=== PATIENT | female | born 2000 | race Caucasian/White ===

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

== ENCOUNTER → 2020-05-05 10:58 | Outpatient (BNVA) | payer BC, MEDICAID, SELFPAY | PROVIDERS: PCP Family Medicine; Visit Provider Nurse Practitioner Family | DX: J02.9 Acute pharyngitis, unspecified (principal) | CPT/HCPCS: 87071; 87880 ==

== ENCOUNTER 2022-11-12 20:26 | Emergency (ER) | payer SELFPAY ==
[2022-11-12 20:28] VITALS: BP 162/103; PULSE 92; RESP 16; TEMP 36.7; O2SAT 100
--- NOTE | 2022-11-12 20:50 | XRR_ITS ---
PROCEDURE INFORMATION: Exam: XR Left Foot Exam date and time: 11/12/2022 8:54 PM Age: 22 years old Clinical indication: Injury or trauma; Left; Without foreign body; Patient HX: Puncture wound to plantar surface of foot just inferior to 2nd-3rd phalanges; Additional info: Puncture, plantar puncture by nail TECHNIQUE: Imaging protocol: Radiologic exam of the left foot. Views: 3 or more views. COMPARISON: No relevant prior studies available. FINDINGS: Bones/joints: Small calcified heel spur. Minimal distal Achilles tendon degenerative calcification. Soft tissues: Normal. XR/XR foot LT min 3V* [id number] IMPRESSION: 1. Small calcified heel spur. 2. Minimal distal Achilles tendon degenerative calcification. 3. Negative for radiodense foreign body
[2022-11-12] MEDS: tetanus-dipt-pertussis 0.5 mL SDV IM (20:58)
[2022-11-12] MEDS: HYDROcodone-acetaminophen 5-325 mg Tablet 1 TAB PO (21:37)
[2022-11-12] MEDS: cephALEXin 500 mg Capsule PO (21:38)
[2022-11-12] MEDS: ciprofloxacin 500 mg Tablet PO (21:41)
[2022-11-12 22:07] VITALS: BP 154/107
--- NOTE | 2022-11-12 23:33 | W.ED.WOUNDLC ---
HPI - Wound/Laceration General: Chief Complaint: Wound/Laceration Stated Complaint: stepped on nail Time Seen by Provider: 11/12/22 20:37 Source: patient Mode of arrival: ambulatory Limitations: no limitations History of Present Illness: Patient presents to the emergency department today for evaluation treatment of puncture wound to the bottom of her left foot. Patient states she was walking through someone's yard when she accidentally stepped on a board that had 3 nail sticking up in it. Patient has 3 holes in the bottom of her shoe but only 2 puncture pulido to the bottom of her left foot. No active bleeding. These did go through the bottom of her shoe. Unknown last tetanus shot. Review of Systems General: Reports: 10 or more systems reviewed and unremarkable except in HPI and below PFSH ED PFSH: Social History Smoking and tobacco status: never smoked Alcohol intake: never Substance/Drug Use: never Physical Exam Const: COMMON NORMALS: no acute distress, patient oriented x3 and alert HENMT: COMMON NORMALS: normocephalic, atraumatic and hearing grossly normal bilaterally HEAD & SCALP: normocephalic and atraumatic Eye: COMMON NORMALS: Equal, round and reactive pupils present, EOMs intact bilaterally and conjunctivae normal CONJUNCTIVA: Yes conjunctivae normal PUPIL: Yes Equal, round and reactive pupils present Neck/C-Spine: COMMON NORMALS: full ROM and no JVD Lymph: LYMPHATIC: no lymphadenopathy noted Resp: COMMON NORMALS: normal respiratory effort, No retractions and No use of accessory muscles Cardio: COMMON NORMALS: no JVD and regular rate RATE: regular rate Extremity: NARRATIVE EXTREMITY EXAM: Patient with 2 puncture wounds noted to the bottom of the left foot. 1 is just proximal to the second and third MCP joints and another is just towards midline of the left arch. No active bleeding. No significant redness visible at this time. Neuro: COMMON NORMALS: patient oriented x3 SENSORIUM/ORIENTATION: Yes alert Psych: COMMON NORMALS: mental status grossly normal, Normal thought process present, cooperative and normal affect THOUGHT PROCESS: Normal thought process present Skin: COMMON NORMALS: no rashes or lesions noted and turgor normal GENERAL SKIN EXAM: no rashes or lesions noted and turgor normal Course Vital Signs: Vital signs: Vital Signs Temperature 98.1 F 11/12/22 20:28 Pulse Rate 92 11/12/22 20:28 Respiratory Rate 16 11/12/22 20:28 Blood Pressure 154/107 11/12/22 22:07 Pulse Oximetry 100 11/12/22 20:28 MDM - Wound/Laceration Medical Decision Making Patient's tetanus immunization was updated today. Wounds were cleaned and bandaged here in the emergency department with a postop shoe and crutches provided to remain nonweightbearing. Referral to orthopedics/podiatry was initiated on her behalf for her follow-up. First dose of antibiotics provided here in the emergency department and the rest prescribed to her to be picked up at the pharmacy and continued for Bar in the morning. Patient given a short course of pain medication. Patient verbalized understanding and agreement to treatment plan. Differential Diagnosis Unlikely laceration, abscess, abrasion or avulsion of skin Lab Data Radiology Impressions Foot X-Ray 11/12/22 20:50 IMPRESSION: 1. Small calcified heel spur. 2. Minimal distal Achilles tendon degenerative calcification. 3. Negative for radiodense foreign body All radiology interpretation(s) finalized by discharge Discharge Plan Discharge Patient Disposition: Home Clinical Impression: Puncture wound of plantar aspect of left foot Condition: Stable Prescriptions: New ciprofloxacin HCl 500 mg tablet 500 mg PO Q12H Qty: 14 0RF cephalexin 500 mg capsule 500 mg PO Q6H 7 Days Qty: 28 0RF naproxen 500 mg tablet 500 mg PO BID PRN (Reason: pain) Qty: 20 0RF No Action hydrochlorothiazide PO DAILY control PO PER PKG DIR Patient Comments: she is unsure what she is taking citalopram 20 mg tablet 20 mg PO DAILY lisinopril 10 mg tablet 10 mg PO DAILY fluticasone propionate [Flonase Allergy Relief] 50 mcg/actuation spray,suspension 2 spray intranasal DAILY Qty: 16 2RF Rx Instructions: administer into each nostril Discharge Orders: Discharge ED (Routine); Ordered 11/12/22 Ordered By: Amanda Mendoza Referrals: Jose Raines MD [Primary Care Provider] - Discharge Diet: Usual diet Discharge Activity: Limit activity as instructed Patient Instructions: Puncture Wound in the Foot (ED) Activity Restrictions/Additional Instructions: X-ray today shows no retained foreign material in your soft tissue from the puncture wound you sustained today. Unfortunately, puncture wound to the bottom of the feet can be extremely painful and are high risk of infection due to bacteria on not only the skin but also in our shoes. For that reason we have to put you on double coverage antibiotics which we started here in the emergency department tonight. Wash your wounds once a day with warm water and a mild soap we do recommend keeping your foot wrapped. We also recommend remaining nonweightbearing and using crutches until you are followed up by podiatry. I have requested a follow-up appointment with our rugby league footballer for reevaluation to make sure there are no concerns with your healing or developing infection. If you for any reason have concerns you are developing an infection we recommend being seen and reevaluated sooner. Stand Alone Forms: Work/School Release Coding Level of Care Code ED Certified Dental Assistant for [employer]
--- NOTE | 2022-11-13 08:53 | PC.SOCIAL ---
Ortho Referral Referral message sent to ortho clinic at this time. Clinic to contact patient with appt date/time.
== END 2022-11-12 22:09 | disposition home or self-care (01) ==
PROVIDERS: Emergency Provider Physician Assistant; PCP Family Medicine
DX: S91.332A Puncture wound without foreign body, left foot, initial encounter (principal); W45.0XXA Nail entering through skin, initial encounter; Z23 Encounter for immunization
CPT/HCPCS: 73630; 90471; 90715; 99283

== ENCOUNTER 2025-01-10 16:01 | Emergency (ER) | payer BC, MEDICAID, SELFPAY ==
[2025-01-10 16:08] VITALS: BP 151/88; PULSE 69; RESP 18; TEMP 36.8; O2SAT 100; BMI 39.3
--- OUTSIDE RECORDS SUMMARY | 2025-01-10 16:08 | XMS_ITS | Continuity of Care Document ---
Author Organization [facility] Derick, LManjeetLRuy, [facility] ([facility]) Address [address] [place] [address] Care Team Providers Care Fish Dressing Machine Feeder Name Role Phone LENNY RODARTE Primary Care Provider [phone] Assessment No assessment recorded. Plan of Treatment Reminders Order Date Submit Date Provider Last Modified By Organization Details Last Modified Time Details Appointments Tariq 2024 01:00P Tanmay Hein MD Not available Not available Not available Lab None recorded . Referral None recorded . Procedures None recorded . Surgeries None recorded . Imaging None recorded . Medication Orders None recorded . Patient TargetsNo targets recorded. Patient InstructionsNo instructions recorded. Reason for Referral None Reported. Results Created Date Observation Date Name Description Value Unit Range Abnormal Flag Note LastModifiedBy Organization Detail LastModifiedTime 12/31/19 25 12/30/2024 pregn korin test, urine HCG positi ve Not Available [facility] ([facility]) [address] [place], [address], 12/30/2024 15:44:27 Result Notes None recorded. Problems Name Problem SNOMED Code Status Onset Date Resolution Date Notes Provider Name and Address Organization Details Recorded Time Essential hypertension 64996674 Active 2020 Andreea marina, [facility] L.LManjeetCManjeet 4 14:35:56 Depressive disorder 55604248 Active 2023 Lenny Rodarte MD [address] [place], [address], [facility] 4 14:55:16 Irregular periods 82240166 Active 2024 Lenny Rodarte MD [address] [place], [address], [facility], Josefa 5 11:42:35 67813084 Active 2024 [facility], [facility], [place]fa 5 15:49:06 Problem Notes None recorded. Medical Equipment None Reported. Allergies No known drug allergies Medications Name Sig Start Date Stop Date Status Note LastModified by Organization Details LastModified Time cyclobenzap rine 10 mg tablet TAKE ONE TABLET BY MOUTH THREE TIMES DAILY NEEDED FOR 5 DAYS 03/06 completed Not Available Not Available Not Available citalopram 10 mg tablet TAKE ONE TABLET BY MOUTH DAILY active Not Available Not Available No t Available hydrocodone 5 mg-acetamin ophen 325 mg tablet TAKE 1 TABLET BY MOUTH EVERY 8 HOURS NEEDED 03/06 completed Not Available Not Available Not Available ciprofloxac in 500 mg tablet TAKE 1 TABLET BY MOUTH EVERY TWELVE HOURS 03/06 completed Not Available Not Available Not Available amoxicillin 875 mg tablet TAKE 1 TABLET BY MOUTH EVERY TWELVE HOURS for 10 days 12/19 completed Not Available Not Available Not Available cephalexin 500 mg capsule take 1 capsule BY MOUTH EVERY 6 HOURS 03/06 completed Not Available Not Available Not Available oseltamivir 75 mg capsule TAKE 1 CAPSULE BY MOUTH TWICE DAILY FOR 5 DAYS 05/27 completed Not Available Not Available Not Available lisinopril 10 mg tablet TAKE 1 TABLET BY MOUTH EVERY DAY 12/30 completed Not Available Not Available Not Available hydrochloro thiazide 12.5 mg capsule TAKE 1 CAPSULE BY MOUTH EVERY DAY 03/06 completed Not Available Not Available Not Available labetalol 100 mg tablet TAKE 1 TABLET BY MOUTH TWICE DAILY active Not Available Not Available No t Available ondansetron 4 mg disintegrat ing tablet DISSOLVE ONE TABLET in MOUTH EVERY 8 HOURS NEEDED FOR NAUSEA AND VOMITING active Not Available Not Available No t Available nitrofurant oin monohydrate /macrocryst als 100 mg capsule TAKE 1 CAPSULE BY MOUTH TWICE DAILY FOR 5 DAYS 05/27 completed Not Available Not Available Not Available hydrochloro thiazide 12.5 mg tablet TAKE ONE TABLET BY MOUTH DAILY active Not Available Not Available No t Available Tri-VyLibra (28) 0.18 mg(7)/0.215 mg(7)/0.25 mg(7)-0.035 mg tablet TAKE 1 TABLET BY MOUTH EVERY DAY 12/22 completed Not Available Not Available Not Available Vitals None Recorded Social History Question Answer Notes LastModified by Organizat ion Details LastModified Time Tobacco Smoking Status Never Smoker WENDY ORTEGA [facility] 12/30/2024 15:54:44 What Was The Date Of Your Most Recent Tobacco Screening? 12/30/2024 [email or web address] Information not available 12/30/2024 Sex: Unknown Functional Status None recorded. Mental Status None recorded. Family History Relationship Description Onset Age of this Age Resolved Age Notes LastModified by Organization Details LastModified Time Mother Kidney disease 46 52 Not available 2024 10:25:27 Mother Diabetes mellitus [email or web address] Not available 12/20 15:53:51 Mother Transient cerebral ischemia [email or web address] Not available 12/20 15:54:22 Mother Chronic obstructive pulmonary disease [email or web address] Not available 12/20 15:54:31 Father Hypertensive disorder [email or web address] Not available 12/20 15:54:03 Paternal Grandmother Transient cerebral ischemia [email or web address] Not available 12/20 15:54:22 Paternal Grandfather Transient cerebral ischemia Not available 12/20 15:54:22 Medical History Condition Response Coronary Artery Disease N Gout N Other N Kidney Stones N Blood Diseases N Hyperthyroidism N Blood Transfusion N Breast Cancer N COPD N Depression Y Lung Disease N Hypothyroidism N Defects or Inherited Disease N Developmental or Behavioral Disorders N Breast Problem N Difficulty Swallowing N Anesthesia Complications N Meniere's disease N Anxiety Disorder N Muscle, Joint, or Bone Problems N Vision or Eye Problems Y Arthritis N Polyps N Infertility N Cancer N Varicosities N Stroke N Endometriosis N Bladder or Kidney Problems N High Cholesterol N Liver Disease N Fibromyalgia N Headaches N Kidney Disease N Allergies/Hayfever N Heart Problems N Ear or Hearing Problems N Hospitalizations N Thyroid Problems N GI Problems N ADD/ADHD N Eating Disorder N Skin Problems N Anemia N Constipation N Mental Illness N Diabetes N Ovarian Cancer N Bedwetting N Seizures/Epilepsy N Tuberculosis N Eczema N Abuse/Domestic Violence N Diverticulitis N Asthma N Reflux/GERD N Hepatitis N Heart Disease N Pulmonary Embolism N Chronic Ear Infections N Pre-Eclampsia N Hypertension N Chicken Pox N Autism Spectrum Disorder (ASD) N Osteoporosis N Thrombophilias N Gynecological History Statement/Question Response Date of Last Pap Smear Obstetrics History GPAL:G 1 P 0 0 0 0 Type Value Full Term 0 Spontaneous 0 Living 0 Total 1 Immunizations Vaccine Type Date Status Note Provider Nam e and Address Organization Details Recorded Time Tdap 11/12/2022 completed CAMACHO marina [facility], .L.CManjeet 03/06/2023 14:39:38 Past Encounters Encounter ID Performer Location Encounter Start Date Encounter Closed Date Diagnosis/Indication Diagnosis SNOMED-CT Code Diagnosis ICD10 Code Diagnosis IMO Codes Diagnosis Note [id number] Lenny Rodarte MD [facility] ([facility]) [address] [place] [address] 12/22/2024 10:45:22 12/22/2024 12:01:05 Irregular periods 45011234 N92.6 377084 2 positive tests and missed period with tender breasts. I have no doubt that she is . Essential hypertension 95793827 I10 [id number] Arlette Hein MD [facility] ([facility]) [address] [place] [address] 12/30/2024 15:39:18 01/08/2025 15:28:48 Amenorrhea 31591751 N91.2 13060 Chronic hy pertension complicating AND/OR reason for care during 73833597 O10.919 20565136 on lisinopril until 12/22/24.12 , 134/74, Finding of menstrual bleeding 905219673 Z36.87 831682 I reviewed what to avoid in and the plan of care. Mild major depression 87 811230 F32.0 29552 Family his tory of Congenital heart disease 155535442 Z82.79 211077 VSD in FOB. [id number] Arlette Hein MD [facility] ([facility]) [address] [place] [address] 01/06/2025 16:12:04 01/07/2025 10:23:14 [id number] CASSANDRA CHIN [facility] ([facility]) [address] [place] [address] 01/10/2025 16:43:00 01/10/2025 16:49:51 Health Concerns Section Related Observation LastModified by Organization Detai ls LastModified Time None Recorded Concern Status LastModified by Organization Details LastModified Time None Recorded Payers Encounter Date Sequence Insurance Name Policy Number Policy Bustos Covered Member ID Bustos Member ID Guarantor Name 01/10/2025 1 [employer] [place]MEDICA[place]PLACEMENT - HMO) [id number] Joanie Casillas 55 Joanie Casillas OBGyn Episode Ob Episode Information Episode Created Date Number of Fetuses Patient Bloodtype Patient rh Status Prepregnancy Weight lbs Domestic Partner Domestic Partner Phone Father Name Silo Filler Status 12/31/19 25 1 OPEN Fetus Data First Name Last Name Admitted to NICU Weight (g) Sex Living Outcome Pediatric Complications Fetus ID Race Codes Race Delivery Type [id number] West Calculation Initial West Date Initial Exam Date Initial Exam Provider Initial Ultrasound Date Last Menstrual Period Date Ultra Sound Weeks Gestation 12/30/2024 10/22/2024 0 Eighteen To Twenty Week West Update Ultra Sound Date Fundal Height At Umbil Quickening Date Ultra Sound Latest Weeks Gestation Final West Confirmed By Final West Confirmed Date Final West Date Ultra Sound Latest Days Gestation 0 07/30/19 26 0 Pre- Flowsheet Flowsheet Date 12/30/2024 Singer Score Blood Edema Fundus Height Fundus Units Glucose Ketones Leukocytes Nitrite Labor Signs Protein Cervic Dilation Cervic Effacement Cervic Station Type Weight in lbs Pre/Post Dialysis Refused Weight 222.8255342781 BP Diastolic BP Location Tested BP Systolic BP Type 98 150 Fetus Heart Rate Present Fetus Movement Comments Flowsheet Date 01/06/2025 Singer Score Blood Edema Fundus Height Fundus Units Glucose Ketones Leukocytes Nitrite Labor Signs Protein Cervic Dilation Cervic Effacement Cervic Station Type Weight in lbs Pre/Post Dialysis Refused BP Diastolic BP Location Tested BP Systolic BP Type Fetus Heart Rate Present Fetus Movement Comments Flowsheet Date 01/10/2025 Singer Score Blood Edema Fundus Height Fundus Units Glucose Ketones Leukocytes Nitrite Labor Signs Protein Cervic Dilation Cervic Effacement Cervic Station Type Weight in lbs Pre/Post Dialysis Refused BP Diastolic BP Location Tested BP Systolic BP Type Fetus Heart Rate Present Fetus Movement Comments Menstrual History Last Menstrual Date Menses Monthly On Bcp Conception Prior Menses Frequency Hcg Plus Date Menarche Onset Age 0910/22/2024 false Genetic Screening And Infection History Question Response Note Patient's Age Will Be 35 Yea rs Or Older At Estimated Date of Delivery false Thalassemia (Nepalese, Icelandic, Mediterranean, Or Background): MCV < 80 false Neural Tube Defect (Meningom yelocele, Spina Bifida, Or Anencephaly) false Congenital Heart Defect false Down Syndrome false Joseph-Sachs (eg, Sikhism, Cajun, [place]deinig-[employer] [place]) f alse Raf Disease false Sickle Cell Disease Or Trait () false Hemophilia Or Other Blood Disorders false Muscular Dystrophy false Cystic Fibrosis false [place] false Intellectual Disability/Autism false If Yes, Was Person Tested For Fragile X? false Other Inherited Genetic Or Chromosomal Disorder false Maternal Metabolic Disorder (eg, Type 1 Diabetes , PKU) false Patient Or Baby's Father Had A Child With Defects Not Listed Above false Recurrent Loss, Or A Stillbirth false Medications (including Suppl ements, Vitamins, Herbs, OTC Drugs), Illicit/Recreational Drugs, Alcohol true If Yes, Agent(s) And Strength/Dosage false See chart. Any Other Genetic History false Live With Someone With TB Or Exposed To TB false Patient Or Partner Has History Of Genital Herpes false Rash Or Viral Illness Since Last Menstrual Perio d false History Of STD, Gonorrhea, Chlamydia, HPV, Syphi lis false Other Infection History false History of HIV false History of Hepatitis false Prior GBS-infected child false Hemoglobinopathy Or Carrier false Other Structural Defect false Recent Travel History Outside of Country false Mental Retardation/Autism false Delivery Information Delivery Date Delivery Type Labor Anesthesia Weeks Gestation Incision Type Labor Labor Length Hrs Delivered By Post Complications Tubal Sterilization Discharge Date Comments Discharge Information Feeding Method Contraceptive Method Maternal HG B and HCT Levels
--- OUTSIDE RECORDS SUMMARY | 2025-01-10 16:08 | XMS_ITS | Data Portability ---
Author Organization [facility], [facility], [facility] Address [address] [address] Care Team Providers Care Dross Skimmer Name Role Phone LENNY RODARTE Primary Care Provider Assessment No assessment recorded. Plan of Treatment Reminders Order Date Submit Date Provider Last Modified By Organization Details Last Modified Time Details Appointments [facility]00P M Arlette Hein MD Not available Not available Not available Lab test, urine 2024 025 [email or web address] [facility] ([facility]), [address] [place], [address], 01/01/2025 13:14:34 Referral obstetric violeta referral 2024 025 [email or web address] Arlette Hein MD, [address], [address], 12/23/2024 10:22:38 Procedures None recorded. Surgeries None recorded. Imaging US, obstetric , 1st trimester - 25114 2024 025 [email or web address] [facility], [address] [place], [address], 01/08/2025 15:28:48 Medication Orders labetalol 100 mg tablet 2024 025 [facility] [place], [address] [place], [address], 12/23/2024 09:27:30 Tri-VyLib ra (28) 0.18 mg(7)/0.2 15 mg(7)/0.2 5 mg(7)-0.0 35 mg tablet 2024 11/03/2 025 [facility] [place], [address] [place], [address], 12/22/2024 11:18:08 Patient TargetsNo targets recorded. Patient Instructions Encounter Date Encounter Id Patient Instructions Last Modified By Organization Details Last Modified Time 05/27/2024 [id number] discussed plans to get a GED. [email or web address] Not available 05/27/2024 10:58:42 Reason for Referral Health Insurance Sales Agent Referral for Ir regular periods Referring Physician: Lenny Rodarte, Family Medicine, Encounter Date: 12/22/2024 Results Created Date Observation Date Name Description Value Unit Range Abnormal Flag Note LastModifiedBy Organization Detail LastModifiedTime 12/31/19 25 12/30/2024 pregn korin test, urine HCG positi ve Not Available [facility] [address] [place], [address], 12/30/2024 15:44:27 Result Notes None recorded. Problems Name Problem SNOMED Code Status Onset Date Resolution Date Notes Provider Name and Address Organization Details Recorded Time Essential hypertension 39758166 Active 2020 Andreea Cabrera null, [facility], LManjeetLRuy 4 14:35:56 Depressive disorder 12033930 Active 2023 Lenny Rodarte MD [address] [place] [address], [address], [facility] 4 14:55:16 Irregular periods 71453173 Active 2024 Lenny Rodarte MD [address] [place] [address], [address], [facility] 5 11:42:35 21867158 Active 2024 WENDY ORTEGA [facility], [facility], [facility] 5 15:49:06 Problem Notes None recorded. Medical [...] Not Available Not Available Not Available Vitals Date Recorded Body weight Oxygen saturation Heart rate Systolic And Diastolic Provider Name and Address Organization Details Last Updated DateTime 05/27/2024 40972.77 g 97 % 74 /min 130/80 mm[Hg] CAMACHO JAMES [facility] 05/27/2024 10:31:39 Date Recorded Body height Body mass index (BMI) Body weight Oxygen saturation Heart rate Body temperature Systolic And Diastolic Provider Name and Address Organization Details Last Updated DateTime 160.02 cm 39 kg/m2 44074.3 2 g 99 % 102 /min 98 [degF] 130/86 mm[Hg] CARLO GOLDSTEIN [facility] 11:13:09 Date Recorded Body height Body mass index (BMI) Body weight Body temperature Oxygen saturation Heart rate Systolic And Diastolic Provider Name and Address Organization Details Last Updated DateTime 160.02 cm 39.3 kg/m2 496653. 51 g 98.2 [degF] 99 % 87 /min 150/98 mm[Hg] WENDY ORTEGA [facility] 15:48:08 Social History Question Answer Notes LastModified by Organizat ion Details LastModified Time Tobacco Smoking Status Never Smoker WENDY ORTEGA [facility] 12/30/2024 15:54:44 What Was The Date Of Your Most Recent Tobacco Screening? 12/30/2024 [email or web address] Information not available 12/30/2024 Sex: Unknown Functional Status None recorded. Mental Status None recorded. Family History Relationship Description Onset Age of this Age Resolved Age Notes LastModified by Organization Details LastModified Time Mother Kidney disease 46 52 Not available 2024 10:25:27 Mother Diabetes mellitus [email or web address] Not available 12/20 15:53:51 Mother Transient cerebral ischemia [email or web address] Not available 12/20 15:54:22 Mother Chronic obstructive pulmonary disease [email or web address] Not available 12/20 15:54:31 Father Hypertensive disorder [email or web address] Not available 12/20 15:54:03 Paternal Grandmother Transient cerebral ischemia Not available 12/20 15:54:22 Paternal Grandfather Transient cerebral ischemia [email or web address] Not available 12/20 15:54:22 Medical History Condition Response Coronary Artery Disease N Other N Gout N Kidney Stones N Blood Diseases N Hyperthyroidism N Breast Cancer N Blood Transfusion N Depression Y Hypothyroidism N Lung Disease N COPD N Defects or Inherited Disease N Developmental [...] Problems N GI Problems N ADD/ADHD N Skin Problems N Eating Disorder N Anemia N Constipation N Mental Illness N Ovarian Cancer N Diabetes N Bedwetting N Seizures/Epilepsy N Tuberculosis N Eczema N Diverticulitis N Abuse/Domestic Violence N Asthma N Reflux/GERD N Hepatitis N Heart Disease N Pulmonary Embolism N Pre-Eclampsia N Hypertension N Chronic Ear Infections N Osteoporosis N Chicken Pox N Autism Spectrum Disorder (ASD) N Thrombophilias N Gynecological History Statement/Question Response Date of Last Pap Smear Obstetrics History GPAL:G 1 P 0 0 0 0 Type Value Full Term 0 Spontaneous 0 Living 0 Total 1 Immunizations Vaccine Type Date Status Note Provider Nam e and Address Organization Details Recorded Time Tdap 11/12/[address] [facility] 03/06/2023 14:39:38 Past Encounters Encounter ID Performer Location Encounter Start Date Encounter Closed Date Diagnosis/Indication Diagnosis SNOMED-CT Code Diagnosis ICD10 Code Diagnosis IMO Codes Diagnosis Note [id number] CASSANDRA RADFORD [facility] ([facility]) [address] [place] [address] 06/01/2022 15:45:49 06/07/2022 17:13:41 Low back pain 236269864 M54.50 Tylenol and Ibuprofen as needed for pain OTC. [id number] Lenny Rodarte MD [facility] ([facility]) [address] [place] [address] 03/06/2023 14:25:40 03/06/2023 16:54:28 Essential hypertension 77844790 I10 Generalize d anxiety disorder 93385118 F41.1 [id number] Lenny Rodarte MD [facility] ([facility]) [address] [place] [address] 05/27/2024 10:17:24 05/27/2024 11:02:45 Essential hypertension 09879048 I10 Depressive disorder 3548 9007 F32.9 stable at present. Contracept ion care management 904904351 Z30.9 Contraception care 44304 5005 Z30.40 [id number] Lenny Rodarte MD [facility] ([facility]) [address] [place] [address] 12/22/2024 10:45:22 12/22/2024 12:01:05 Irregular periods 68684934 N92.6 699035 2 positive tests and missed period with tender breasts. I have no doubt that she is . Essential hypertension 79017881 I10 [id number] Arlette Hein MD [facility] ([facility]) [address] [place] [address] 12/30/2024 15:39:18 01/08/2025 15:28:48 Amenorrhea 68589779 N91.2 97109 Chronic hy pertension complicating AND/OR reason for care during 63636546 O10.919 66042383 on lisinopril until 12/22/24.12 , 134/74, Finding of menstrual bleeding 968697321 Z36.87 121653 I reviewed what to avoid in and the plan of care. Mild major depression 87 824452 F32.0 97646 Family his tory of Congenital heart disease 415517097 Z82.79 503200 VSD in FOB. [id number] Arlette Hein MD [facility] ([facility]) [address] [place] [address] 01/06/2025 16:12:04 01/07/2025 10:23:14 [id number] CASSANDRA CHIN [facility] ([facility]) [address] [place] [address] 01/10/2025 16:43:00 01/10/2025 16:49:51 Health Concerns Section Related Observation LastModified by Organization Detai ls LastModified Time None Recorded Concern Status LastModified by Organization Details LastModified Time None Recorded Advance Directives Directive None Recorded Payers Insurance Date Sequence Insurance Name Policy Number Policy Bustos Covered Member ID Bustos Member ID Guarantor Name 12/22/2024 1 *SELF PAY* Victoriano anupama Casillas 01/06/2025 1 [facility] (MEDICAID HMO) [id number] Joanie Casillas [id number] Joanie Casillas 05/27/2024 1 [facility] (MEDICAID REPLACEMENT - HMO) [id number] Montagueles [id number] Joanie Casillas 06/22/2022 MARKY [id number] Marky Joanie Casillas 01/06/2025 1 [facility] (MEDICAID REPLACEMENT - HMO) [id number] Joanie Casillas [id number] Joanie Casillas 01/06/2025 [facility] (MEDICAID HMO) [id number] Joanie Casillas [id number] Joanie Casillas Notes Date Note Type Note Provider Name and Address Organization Details Recorded Time text/html Anxiety/DepressionReporte d by PatientHPIFor associated symptoms, patient reportsdepressionbut reportsno anxiety. For severity, patient reportsdenies suicidal ideations,able to maintain relationships, anddoes not interfere with activities of daily living. For modifying factors, patient reportsmedications as directed. Hypertension IM/FMReported by PatientHPIFor quality, patient reportshere for check-up. For severity, patient reportsnormal (<120/<80 mmhg). For onset/timing, patient reportsgradual onset. For alleviating factors, patient reportsmedication. For associated symptoms, patient reportsno shortness of breath,no palpitations, andno chest pain. Lenny Rodarte MD [address] [place], [address], [facility], LManjeetLRuy 05/27/2024 11:00:52 11/03/202 5 text/html Confirmation VisitReported by PatientHPIFor obstetrics and gynecology, patient reportsno bleeding between periods,lmp: (10/22/24), anddate positive test: (12/11/24). Lenny Rodarte MD [address] [place], [address], [facility] 12/22/2024 11:50:05 5 text/html ROS as noted in the HPI Arlette Hein MD [address] [place], [address], [facility] 01/08/2025 14:44:25 OBGyn Episode Ob Episode Information Episode Created Date Number of Fetuses Patient Bloodtype Patient rh Status Prepregnancy Weight lbs Domestic Partner Domestic Partner Phone Father Name Pickling Operator Status 12/31/19 25 1 OPEN Fetus Data First Name Last Name Admitted to NICU Weight (g) Sex Living Outcome Pediatric Complications Fetus ID Race Codes Race Delivery Type [id number] West Calculation Initial West Date Initial Exam [...] Latest Days Gestation 0 07/30/19 26 0 Pre-omaira Flowsheet Flowsheet Date 12/30/2024 Singer Score Blood Edema Fundus Height Fundus Units Glucose Ketones Leukocytes Nitrite Labor Signs Protein Cervic Dilation Cervic Effacement Cervic Station Type Weight in lbs Pre/Post Dialysis Refused Weight 222.8237204011 BP Diastolic BP Location Tested BP Systolic [...] At Estimated Date of Delivery false Thalassemia (Macedonian, Indonesian, Mediterranean, Or Background): MCV < 80 false Neural Tube Defect (Meningom yelocele, Spina Bifida, Or Anencephaly) false Congenital Heart Defect false Down Syndrome false Joseph-Sachs (eg, Mosque, Cajun, Upper Sorbian[place]) f alse Raf Disease false Sickle Cell Disease Or Trait () false Hemophilia Or Other Blood Disorders false Muscular Dystrophy false Cystic Fibrosis false Elizabeth's Chorea false Intellectual Disability/Autism false If Yes, [...]
--- OUTSIDE RECORDS SUMMARY | 2025-01-10 16:08 | XMS_ITS | Continuity of Care Document ---
Author Organization [facility] Derick, Josefa, [facility] ([facility]) Address [address] [place] [address] Care Team Providers Care Foreign Language Professor Name Role Phone LENNY RODARTE Primary Care Provider Assessment No assessment recorded. Plan of Treatment Reminders Order Date Submit Date Provider Last Modified By Organization Details Last Modified Time Details Appointments BarrFELIZ 2024 01:00P Tanmay Hein MD Not available Not available Not available Lab test, urine 2024 025 [email or web address] [facility] ([facility]), [address] [place], [address], 01/01/2025 13:14:34 Referral None recorded. Procedures None recorded. Surgeries None recorded. Imaging US, obstetric , 1st trimester - [address] 2024 025 [email or web address] [facility], [address] [place] [address], [address], 01/08/2025 15:28:48 Medication Orders None recorded. Patient TargetsNo targets recorded. Patient InstructionsNo instructions recorded. Reason for Referral None Reported. Results Created Date Observation Date Name Description Value Unit Range Abnormal Flag Note LastModifiedBy Organization Detail LastModifiedTime 12/31/19 25 12/30/2024 pregn korin test, urine HCG positi ve Not Available [facility] ([facility]) [address] [place], [address], 12/30/2024 15:44:27 Result Notes None recorded. Problems Name Problem SNOMED Code Status Onset Date Resolution Date Notes Provider Name and Address Organization Details Recorded Time Essential hypertension 57598623 Active 2020 Andreea Deborah null, [facility] 4 14:35:56 Depressive disorder 81780920 Active 2023 Lenny Rodarte MD [address] [place], [address], [facility] 4 14:55:16 Irregular periods 58374780 Active 2024 Lenny Rodarte MD [address] [place], [address], [facility] 5 11:42:35 54171148 Active 2024 WENDY marina [facility] 5 15:49:06 Problem Notes None recorded. Medical [...] Available Not Available Vitals Date Recorded Body height Body mass index (BMI) Body weight Body temperature Oxygen saturation Heart rate Systolic And Diastolic Provider Name and Address Organization Details Last Updated DateTime 160.02 cm 39.3 kg/m2 218143. 51 g 98.2 [degF] 99 % 87 /min 150/98 mm[Hg] WENDY ORTEGA [facility] 15:48:08 Social History Question Answer Notes LastModified by Organizat ion Details LastModified Time Tobacco Smoking Status Never Smoker WENDY ORTEGA [facility] 12/30/2024 15:54:44 What Was The Date Of Your Most Recent Tobacco Screening? 12/30/2024 [email or web address] Information not available 12/30/2024 Sex: Unknown Functional Status None recorded. Mental Status None recorded. Family History Relationship Description Onset Age of this Age Resolved Age Notes LastModified by Organization Details LastModified Time Mother Kidney disease 46 52 [email or web address] Not available 2024 10:25:27 Mother Diabetes mellitus [email or web address] Not available 12/20 15:53:51 Mother Transient cerebral ischemia [email or web address] Not available 12/20 15:54:22 Mother Chronic obstructive pulmonary disease Not available 12/20 15:54:31 Father Hypertensive disorder [email or web address] Not available 12/20 15:54:03 Paternal Grandmother Transient cerebral ischemia [email or web address] Not available 12/20 15:54:22 Paternal Grandfather Transient cerebral ischemia [email or web address] Not available 12/20 15:54:22 Medical History Condition Response Coronary Artery Disease N Gout N Other N Blood Diseases N Kidney Stones N Hyperthyroidism N Breast Cancer N Blood Transfusion N Hypothyroidism N Lung Disease N COPD N Depression Y Developmental or Behavioral Disorders N Defects or Inherited Disease N Breast Problem N Difficulty Swallowing N [...] Organization Details Recorded Time Tdap 11/12/2022 completed NUSRAT Hoff [facility]jeet 03/06/2023 14:39:38 Past Encounters Encounter ID Performer Location Encounter Start Date Encounter Closed Date Diagnosis/Indication Diagnosis SNOMED-CT Code Diagnosis ICD10 Code Diagnosis IMO Codes Diagnosis Note [id number] Lenny Rodarte MD [facility] ([facility]) [address] [place] [address] 12/22/2024 10:45:22 12/22/2024 12:01:05 Irregular periods 34368394 N92.6 270501 2 positive tests and missed period with tender breasts. I have no doubt that she is . Essential hypertension 60199335 I10 [id number] Arlette Hein MD [facility] [address] [place] [address] 12/30/2024 15:39:18 01/08/2025 15:28:48 Amenorrhea 28951241 N91.2 50460 Chronic hy pertension complicating AND/OR reason for care during 66793262 O10.919 25540703 on lisinopril until 12/22/24.12 , 134/74, Finding of menstrual bleeding 695184122 Z36.87 454107 I reviewed what to avoid in and the plan of care. 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 Health Concerns Section Related Observation LastModified by Organization Detai ls LastModified Time None Recorded Concern Status LastModified by Organization Details LastModified Time None Recorded Payers Encounter Date Sequence Insurance Name Policy Number Policy Bustos Covered Member ID Bustos Member ID Guarantor Name 12/30/2024 1 [facility] (MEDICAID HMO) [id number] Joanie Casillas [id number] Joanie Casillas Notes Date Note Type Note Provider Name and Address Organization Details Recorded Time 12/30/2024 text/html ROS as noted in the HPI Arlette Hein MD [address] [place] [address], [address], [facility] 01/08/2025 14:44:25 OBGyn Episode Ob Episode Information Episode Created Date Number of Fetuses Patient Bloodtype Patient rh Status Prepregnancy Weight lbs Domestic Partner Domestic Partner Phone Father Name Classics Professor Status 12/31/19 1 OPEN Fetus Data First Name Last Name Admitted to NICU Weight (g) Sex Living Outcome Pediatric Complications Fetus ID Race Codes Race Delivery Type [id number] West Calculation Initial West Date Initial Exam [...] Weight in lbs Pre/Post Dialysis Refused Weight 222.6634715474 BP Diastolic BP Location Tested BP Systolic [...] At Estimated Date of Delivery false Thalassemia (Indonesian, Uzbek, Mediterranean, Or Background): MCV < 80 false Neural Tube Defect (Meningom yelocele, Spina Bifida, Or Anencephaly) false Congenital Heart Defect false Down Syndrome false Joseph-Sachs (eg, Religion, Cajun, Maori-[place]) f alse Raf Disease false Sickle Cell Disease Or Trait () false Hemophilia Or Other Blood Disorders false Muscular Dystrophy false Cystic Fibrosis false [place]'s Chorea false Intellectual Disability/Autism false If Yes, [...]
--- OUTSIDE RECORDS SUMMARY | 2025-01-10 16:08 | XMS_ITS | Continuity of Care Document ---
Author Organization [facility] Derick, LMnajeetLRuy, [facility] ([facility]) Address [address] [place] [address] Care Team Providers Care [employer] Principal Name Role Phone LENNY RODARTE Primary Care Provider [phone] Assessment No assessment recorded. Plan of Treatment [...] test, urine HCG positi ve Not Available [facility] ([facility]) [address] [place], [address], 12/30/2024 15:44:27 Result Notes None recorded. Problems Name Problem SNOMED Code Status Onset Date Resolution Date Notes Provider Name and Address Organization Details Recorded Time Essential hypertension 14829279 Active 2020 Andreea marina, [facility] L.LManjeetCManjeet 4 14:35:56 Depressive disorder 92846564 Active 2023 Lenny Rodarte MD [address] [place], [address], [facility]et[facility]. 4 14:55:16 Irregular periods 52699659 Active 2024 Lenny Rodarte MD [address] [place], [address], [facility], Josefa 5 11:42:35 59696720 Active 2024 WENDY ORTEGA [facility], [facility], Josefa 5 15:49:06 Problem Notes None recorded. [...] Tobacco Smoking Status Never Smoker WENDY ORTEGA [facility] 12/30/2024 15:54:44 What Was The Date Of Your Most Recent Tobacco Screening? 12/30/2024 [email or web address] Information not available 12/30/2024 Sex: Unknown Functional Status None recorded. Mental Status None recorded. Family History Relationship Description Onset Age of this Age Resolved Age Notes LastModified by Organization Details LastModified Time Mother Kidney disease 46 52 [email or web address] Not available 2024 10:25:27 Mother Diabetes mellitus Not available 12/20 15:53:51 Mother Transient cerebral ischemia Not available 12/20 15:54:22 Mother Chronic obstructive pulmonary disease [email or web address] Not available 12/20 15:54:31 Father Hypertensive disorder [email or web address] Not available 12/20 15:54:03 Paternal Grandmother Transient cerebral ischemia [email or web address] Not available 12/20 15:54:22 Paternal Grandfather Transient cerebral ischemia [email or web address] Not available 12/20 15:54:22 Medical History Condition Response Coronary Artery Disease N Other N Gout N Kidney Stones N Blood Diseases N Hyperthyroidism N Breast Cancer N Blood Transfusion N Depression Y Hypothyroidism N Lung Disease N COPD N Developmental or Behavioral Disorders N Defects or Inherited Disease N Breast Problem N Difficulty Swallowing N Anesthesia Complications N Anxiety Disorder N Meniere's disease N Muscle, Joint, or Bone Problems N Vision or Eye Problems Y Arthritis N Infertility N Polyps N Cancer N Stroke N Varicosities N Endometriosis N Bladder or Kidney Problems [...] Recorded Time Tdap 11/12/2022 completed CAMACHO marina [facility], .L.CManjeet 03/06/2023 14:39:38 Past Encounters Encounter ID Performer Location Encounter Start Date Encounter Closed Date Diagnosis/Indication Diagnosis SNOMED-CT Code Diagnosis ICD10 Code Diagnosis IMO Codes Diagnosis Note [id number] Lenny Rodarte MD [facility] ([facility]) [address] [place] [address] 12/22/2024 10:45:22 12/22/2024 12:01:05 Irregular periods 51671009 N92.6 423275 2 positive tests and missed period with tender breasts. I have no doubt that she is . Essential hypertension 64181702 I10 [id number] Arlette Hein MD [facility] ([facility]) [address] [place] [address] 12/30/2024 15:39:18 01/08/2025 15:28:48 Amenorrhea 23920718 N91.2 78044 Chronic hy pertension complicating AND/OR reason for care during 18184888 O10.919 96892396 on lisinopril until 12/22/24.12 , 134/74, Finding of menstrual bleeding 028791318 Z36.87 057194 I reviewed what to avoid in and the plan of care. Mild major depression 87 957716 F32.0 26633 Family his tory of Congenital heart disease 643312690 Z82.79 396336 VSD in FOB. [id number] Arlette Hein MD [facility] ([facility]) [address] [place] [address] 01/06/2025 16:12:04 01/07/2025 10:23:14 Health Concerns Section Related Observation LastModified by Organization Detai ls LastModified Time None Recorded Concern Status LastModified by Organization Details LastModified Time None Recorded Payers Encounter Date Sequence Insurance Name Policy Number Policy Bustos Covered Member ID Bustos Member ID Guarantor Name 01/06/2025 1 [employer] (MEDICAID REPLACEMENT - HMO) [id number] Joanie Melony Casillas 55 Joanie Casillas OBGyn Episode Ob Episode Information Episode Created Date Number of Fetuses Patient Bloodtype Patient rh Status Prepregnancy Weight lbs Domestic Partner Domestic Partner Phone Father Name Seam Sewer Status 12/31/19 25 1 OPEN Fetus Data First Name Last Name Admitted to NICU Weight (g) Sex Living Outcome Pediatric Complications Fetus ID Race Codes Race Delivery Type [id number] West Calculation Initial West Date Initial Exam [...] Weight in lbs Pre/Post Dialysis Refused Weight [id number] BP Diastolic BP Location Tested BP Systolic [...] At Estimated Date of Delivery false Thalassemia (Paraguayan, Andorran, Mediterranean, Or Background): MCV < 80 false Neural Tube Defect (Meningom yelocele, Spina Bifida, Or Anencephaly) false Congenital Heart Defect false Down Syndrome false Joseph-Sachs (eg, Uatsdin, Cajun, Angolan-[facility] [facility]) f alse Raf Disease false Sickle Cell Disease Or Trait () false Hemophilia Or Other Blood Disorders false Muscular Dystrophy false Cystic Fibrosis false [place]'s Chorea false Intellectual Disability/Autism false If Yes, [...]
--- OUTSIDE RECORDS SUMMARY | 2025-01-10 16:08 | XMS_ITS | Continuity of Care Document ---
Author Organization [facility] Derick, L.L.CManjeet, [facility] ([facility]) Address [address] [place] [address] Care Team Providers Care Bell Spinner Name Role Phone LENNY RODARTE Primary Care Provider [phone] Assessment No assessment recorded. Plan of Treatment Reminders Order Date Submit Date Provider Last Modified By Organization Details Last Modified Time Details Appointments BarrFELIZ 2024 01:00P Tanmay Hein MD Not available Not available Not available Lab None recorded. Referral obstetric violeta referral 2024 025 Arlette Hein MD, [address], [address], 12/23/2024 10:22:38 Procedures None recorded. Surgeries None recorded. Imaging None recorded. Medication Orders labetalol 100 mg tablet 2024 025 [facility] [place], [address] [place], [address], 12/23/2024 09:27:30 Patient TargetsNo targets recorded. Patient InstructionsNo instructions recorded. Reason for Referral Shopper'S Aide Referral for Ir regular periods Referring Physician: Lenny Rodarte Family [facility], Encounter Date: 12/22/2024 Problems Name Problem SNOMED Code Status Onset Date Resolution Date Notes Provider Name and Address Organization Details Recorded Time Essential hypertension 28264243 Active [address] [facility], L.L.CManjeet 4 14:35:56 Depressive disorder 40602199 Active 2023 Lenny Rodarte MD [address] [place], [address], [facility], L.LRuy 4 14:55:16 Irregular periods 85143980 Active 2024 Lenny Rodarte MD [address] [place], [address], [facility], L.LRuy 5 11:42:35 81706707 Active 2024 WENDY ORTEGA [facility], [facility], L.LRyu 5 15:49:06 Problem Notes None recorded. Medical [...] Last Updated DateTime 160.02 cm 39 kg/m2 03287.3 2 g 99 % 102 /min 98 [degF] 130/86 mm[Hg] CARLO GOLDSTEIN [facility], L.L.C. 11:13:09 Social History Question Answer Notes LastModified by Organizat ion Details LastModified Time Tobacco Smoking Status Never Smoker [facility] 12/30/2024 15:54:44 What Was The Date Of Your Most Recent Tobacco Screening? 12/30/2024 [email or web address] Information not available 12/30/2024 Sex: Unknown Functional Status None recorded. Mental Status None recorded. Family History Relationship Description Onset Age of this Age Resolved Age Notes LastModified by Organization Details LastModified Time Mother Kidney disease 46 52 [email or web address] Not available 2024 10:25:27 Mother Diabetes mellitus Not available 12/20 15:53:51 Mother Transient cerebral ischemia Not available 12/20 15:54:22 Mother Chronic obstructive pulmonary disease Not available 12/20 15:54:31 Father Hypertensive disorder [email or web address] Not available 12/20 15:54:03 Paternal Grandmother Transient cerebral ischemia [email or web address] Not available 12/20 15:54:22 Paternal Grandfather Transient cerebral ischemia Not available 12/20 15:54:22 Medical History Condition Response Coronary Artery Disease N Other N Gout N Kidney Stones N Blood Diseases N Hyperthyroidism N Breast Cancer N Blood Transfusion N Hypothyroidism N Depression Y COPD N Lung Disease N Defects or Inherited Disease N Developmental or Behavioral Disorders N Breast Problem N Difficulty Swallowing N Anesthesia Complications N Anxiety Disorder N Meniere's disease N Muscle, Joint, or Bone Problems N Vision or Eye Problems Y Arthritis N Polyps N Infertility N Cancer N Varicosities N Stroke N Endometriosis N Bladder or Kidney Problems N High Cholesterol N Liver Disease N Headaches N Fibromyalgia N Kidney Disease N Allergies/Hayfever N Heart [...] Address Organization Details Recorded Time Tdap 11/12/2022 nolan JAMES [facility] 03/06/2023 14:39:38 Past Encounters Encounter ID Performer Location Encounter Start Date Encounter Closed Date Diagnosis/Indication Diagnosis SNOMED-CT Code Diagnosis ICD10 Code Diagnosis IMO Codes Diagnosis Note [id number] Lenny Rodarte MD [facility] ([facility]) [address] [place] [address] 12/22/2024 10:45:22 12/22/2024 12:01:05 Irregular periods 72334425 N92.6 625000 2 positive tests and missed period with tender breasts. I have no doubt that she is . Essential hypertension 26104261 I10 Health Concerns Section Related Observation LastModified by Organization Detai ls LastModified Time None Recorded Concern Status LastModified by Organization Details LastModified Time None Recorded Payers Encounter Date Sequence Insurance Name Policy Number Policy Bustos Covered Member ID Bustos Member ID Guarantor Name 12/22/2024 1 [facility] (MEDICAID HMO) [id number] Joanie Ty Vinny [id number] Joanie Ty Vinny OBGyn Episode Ob Episode Information Episode Created Date Number of Fetuses Patient Bloodtype Patient rh Status Prepregnancy Weight lbs Domestic Partner Domestic Partner Phone Father Name Tennis Court Attendant Status 12/31/19 25 1 OPEN Fetus Data First Name Last Name Admitted to NICU Weight (g) Sex Living Outcome Pediatric Complications Fetus ID Race Codes Race Delivery Type [id number] West Calculation Initial West Date Initial Exam [...] Weight in lbs Pre/Post Dialysis Refused Weight 222.8729256049 BP Diastolic BP Location Tested BP Systolic [...] At Estimated Date of Delivery false Thalassemia (Spanish, Jamaican, Mediterranean, Or Background): MCV < 80 false Neural Tube Defect (Meningom yelocele, Spina Bifida, Or Anencephaly) false Congenital Heart Defect false Down Syndrome false Joseph-Sachs (eg, Hinduism, Cajun, Kinyarwanda-Snyder) f alse Raf Disease false Sickle Cell Disease Or Trait () false Hemophilia Or Other Blood Disorders false Muscular Dystrophy false Cystic Fibrosis false [place]nairy's Chorea false Intellectual Disability/Autism false If Yes, [...]
--- NOTE | 2025-01-10 16:21 | ED_ITS ---
HPI - General Adult 2 General: Chief complaint: General Medical Stated complaint: 8Weeks Preg tired dry mouth N Time Seen by Provider: 01/10/25 16:21 History of Present Illness: 24-year-old female with a history of dep ression and hypertension who presents emergency room with dry mouth and generalized weakness. She says she is about 9 weeks . Says she was at work at [employer] today and felt like she was going to pass out. Says sitting helps. No fevers. No vaginal bleeding. No pelvic pain. No adnexal pain. She has had some general nausea and morning sickness. Related Data Home Medications ?Medication ?Instructions ?Recorded ?Confirmed citalopram 10 mg tablet 10 mg PO DAILY 12/15/2412/21 hydrochlorothiazide 12.5 mg tablet 12.5 mg PO DAILY 01/10/25 labetalol 100 mg tablet 100 mg PO BID 01/10/2501/10 Previous Rx's ?Medication ?Instructions ?Recorded ondansetron 4 mg disintegrating 4 mg PO Q8H PRN nausea and 12/15/24 tablet vomiting #14 tabs ondansetron 8 mg disintegrating 8 mg PO Q6H #14 tabs 1 03/12/24 tablet Allergies Allergy/AdvReac Type Severity Reaction Status Date / Time No Known Allergies Allergy Verified 01/10/25 16:13 Review of Systems 2 Narrative: Constitutional symptoms: Negative except as documented in HPI. Skin symptoms: Negative except as documented in HPI. Eye symptoms: Negative except as documented in HPI. ENMT symptoms: Negative except as documented in HPI. Respiratory symptoms: Negative except as documented in HPI. Cardiovascular symptoms: Negative except as documented in HPI. Gastrointestinal symptoms: Negative except as documented in HPI. Genitourinary symptoms: Negative except as documented in HPI. Musculoskeletal symptoms: Negative except as documented in HPI. Neurologic symptoms: Negative except as documented in HPI. Psychiatric symptoms: Negative except as documented in HPI. Endocrine symptoms: Negative except as documented in HPI. PFSH ED 2 PFSH: Medical History (Updated 01/10/25 @ 17:35 by Carol Myers MD) Pre-existing essential hypertension during in first trimester Viral illness Social History Smoking and tobacco/nicotine status: current some day tobacco/nicotine user (vape) Alcohol intake: never Substance/Drug Use: never Physical Exam 2 Narrative: EXAM NARRATIVE: General: Alert, no acute distress. Skin: Warm, dry. Head: Normocephalic, atraumatic. Neck: Supple, trachea midline. Eye: Extraocular movements are intact. Ears, nose, mouth and throat: Tacky oral mucosa Cardiovascular: Regular, Normal peripheral perfusion. Respiratory: Lungs are clear to auscultation, respirations are non-labored, breath sounds are equal, Symmetrical chest wall expansion. Gastrointestinal: Soft, Nontender, Non distended Musculoskeletal: Normal ROM, no deformity. Neurological: Alert and oriented, No focal neurological deficit observed. Psychiatric: Cooperative, appropriate mood & affect. Course 2 Vital Signs: Vital signs: Vital Signs Temperature 98.2 F 01/10/25 16:08 Pulse Rate 89 01/10/25 16:23 Respiratory Rate 18 01/10/25 16:08 Blood Pressure 156/82 01/10/25 16:23 Pulse Oximetry 99 01/10/25 16:23 Oxygen Delivery Me thod Room Air 01/10/25 16:23 MDM - General Adult Medical Decision Making Medical decision making Patient's reason for coming to the emergency room: Weakness, lightheadedness, Social determinants: Employed I reviewed the patient's medical record. I reviewed the patient's current home meds Patient has been taking chronic medications for hypertension. Alternate historians: None Differential diagnosis: including but not limited to and based on the above HPI, review of systems and physical exam: Orders placed to evaluate differential diagnosis based on the above differential, HPI and physical exam In this patient would have concern for renal failure, hepatic disease etc. urinary tract infection. Lab Review: Laboratory results were reviewed and interpreted by myself the emergency room physician. Lab work was unremarkable. Reexamination: Patient remained stable. No increased work of breathing. No altered mental status. No focal motor deficits. Assessment and plan: Dehydration ? Normal saline bolus and IV Zofran in the emergency room - Discharged home - Discussed plan with patient. Answered any questions. - Evaluation and treatment of this problem were appropriate in the emergency setting. Lab Data 01/10/25 16:41 01/10/25 16:41 Laboratory Results WBC 8.96 10^3/uL (3.29-11.43) 01/10/25 16:41 RBC 3.88 10^6/uL (3.85-5.65) 01/10/25 16:41 Hgb 10.10 g/dL (11.27-16.99) L 01/10/25 16:41 Hct 32.0 % (36-47) L 01/10/25 16:41 MCV 82.5 fl (85-98) L 01/10/25 16:41 MCH 26.0 pg (27-33) L 01/10/25 16:41 MCHC 31.6 g/dL (30-55) 01/10/25 16:41 RDW 14.6 % (12.1-15.1) 01/10/25 16:41 Plt Count 254 10^3/cmm (157-399) 01/10/25 16:41 MPV 11.5 fL (7.4-10.4) H 01/10/25 16:41 Neut % (Auto) 65.4 % 01/10/25 16:41 Lymph % (Auto) 25.9 % 01/10/25 16:41 [place] % (Auto) 6.4 % 01/10/25 16:41 Eos % (Auto) 1.7 % 01/10/25 16:41 Baso % (Auto) 0.2 % 01/10/25 16:41 Neut # (Auto) 5.86 10^3/uL (1.8-7.7) 01/10/25 16:41 Lymph # (Auto) 2.3 10^3/uL (0.8-4.8) 01/10/25 16:41 [place] # (Auto) 0.6 10^3/uL (0.2-0.9) 01/10/25 16:41 Eos # (Auto) 0.2 10^3/uL (0.0-0.8) 01/10/25 16:41 Baso # (Auto) 0.0 10^3/uL (0.0-0.1) 01/10/25 16:41 Nucleated RBC % (auto) 0 % 01/10/25 16:41 Nucleated RBCs # 0.0 /100WBC 01/10/25 16:41 Sodium 136 mmol/L (136-145) 01/10/25 16:41 Potassium 3.4 mmol/L (3.5-5.1) L 01/10/25 16:41 Chloride 100 mmol/L (98-107) 01/10/25 16:41 Carbon Dioxide 22 mmol/L (22-29) 01/10/25 16:41 Anion Gap 17.4 (5-19) 01/10/25 16:41 BUN 10 mg/dL (6-20) 01/10/25 16:41 Creatinine 0.6 mg/dL (0.5-0.9) 01/10/25 16:41 GFR Calculation 122.8 mL/min (90-130) 01/10/25 16:41 Glucose 84 mg/dL (65-115) 01/10/25 16:41 Calculated Osmolality 280 mOsm/kg (285-295) L 01/10/25 16:41 Calcium 9.3 mg/dL (8.5-10.5) 01/10/25 16:41 Total Bilirubin 0.5 mg/dL (0.15-1.2) 01/10/25 16:41 AST 12 U/L (0-32) 01/10/25 16:41 ALT 15 U/L (0-33) 01/10/25 16:41 Alkaline Phosphatase 121 U/L (35-105) H 01/10/25 16:41 Total Protein 7.6 g/dL (6.6-8.7) 01/10/25 16:41 Albumin 4.0 g/dL (3.5-5.2) 01/10/25 16:41 Globulin 3.6 g/dL (1.3-4.6) 01/10/25 16:41 Urine Color Yellow (Yellow) 01/10/25 16:18 Urine Appearance Clear (CLEAR) 01/10/25 16:18 Urine pH 5.5 (5-7) 01/10/25 16:18 Ur Specific [place] 1.018 (1.005-1.030) 01/10/25 16:18 Urine Protein Negative (Negative) 01/10/25 16:18 Urine Glucose (UA) Negative (Normal) 01/10/25 16:18 Urine Ketones Negative (Negative) 01/10/25 16:18 Urine Blood Negative (Negative) 01/10/25 16:18 Urine Nitrate Negative (Negative) 01/10/25 16:18 Urine Bilirubin Negative (Negative) 01/10/25 16:18 Urine Urobilinogen 0.2 mg/dL (Negative) 01/10/25 16:18 Ur Leukocyte Esterase Negative (Negative) 01/10/25 16:18 Urine RBC 0-2 /hpf (0-2) 01/10/25 16:18 Urine WBC 0-5 /hpf (0-5) 01/10/25 16:18 Ur Squamous Epith Cells 0-5 /hpf (0-5) 01/10/25 16:18 Urine Bacteria None seen /hpf (NONE) 01/10/25 16:18 Hyaline Casts 0.40 /lpf 01/10/25 16:18 No radiology studies performed this visit Discharge Plan Discharge Patient Disposition: Home Clinical Impression: , Dehydration Condition: Stable Prescriptions: New ondansetron 8 mg tablet,disintegrating 8 mg PO Q6H Qty: 14 0RF Rx Instructions: Take 1/2-1 tab every 6 hours as needed for nausea and vomiting No Action citalopram 10 mg tablet 10 mg PO DAILY hydrochlorothiazide 12.5 mg tablet 12.5 mg PO DAILY ondansetron 4 mg tablet,disintegrating 4 mg PO Q8H PRN (Reason: nausea and vomiting) Qty: 14 0RF labetalol 100 mg tablet 100 mg PO BID Discharge Orders: Discharge ED (Routine); Ordered 01/10/25 Ordered By: Carol Myers Referrals: Jose Raines MD [Primary Care Provider, Family Practice] Discharge Diet: Advance as tolerated Patient Instructions: Hyperemesis Gravidarum (ED), Opioid Safety, Pain Management, Patient Portal & Irma Instructions Activity Restrictions/Additional Instructions: Thank you for choosing [facility] for your healthcare needs today. You have been screened and evaluated and felt safe for discharge. Health conditions do change or evolve sometimes and as such it is important that you follow up with your Primary Doctor to be re checked, 3-5 days is a general good time frame for follow up. You are always welcome to return to the ED for re assessment if your symptoms are worsening or you have new concerns Print Language: Sao Tomean Coding Level of Care Code ED Seamless Hosiery Knitter for Monty Lopez
[2025-01-10 16:23] VITALS: BP 156/82; PULSE 89; O2SAT 99
[2025-01-10 16:35] LABS: Glucose Urine UA Negative (Normal); Nitrate Urine Negative (Negative); Specific Gravity, Urine 1.018 (1.005-1.030)
[2025-01-10 16:58] LABS: Hematocrit 32.0 % (36-47); Hemoglobin 10.10 g/dL (11.27-16.99); Mean Corpuscular HGB Conc 31.6 g/dL (30-55); Mean Corpuscular Hemoglobin 26.0 pg (27-33); Mean Corpuscular Volume 82.5 fl (85-98); Nucleated Red Blood Cells % 0 %; Platelet Count 254 10^3/cmm (157-399); Red Blood Count 3.88 10^6/uL (3.85-5.65); White Blood Count 8.96 10^3/uL (3.29-11.43)
[2025-01-10 17:20] LABS: Alanine Aminotransferase 15 U/L (0-33); Albumin Level 4.0 g/dL (3.5-5.2); Alkaline Phosphatase 121 U/L (35-105); Anion Gap 17.4 (5-19); Aspartate Amino Transferase 12 U/L (0-32); Blood Urea Nitrogen 10 mg/dL (6-20); Calcium 9.3 mg/dL (8.5-10.5); Carbon Dioxide 22 mmol/L (22-29); Chloride 100 mmol/L (98-107); Globulin 3.6 g/dL (1.3-4.6); Glucose 84 mg/dL (65-115); Osmolality Calculated 280 mOsm/kg (285-295); Potassium 3.4 mmol/L (3.5-5.1); Sodium 136 mmol/L (136-145); Total Protein 7.6 g/dL (6.6-8.7)
[2025-01-10] MEDS: ondansetron 2 mg/ML SDV 2 mL 4 MG IVP (18:10)
[2025-01-10 18:43] VITALS: BP 125/85; PULSE 73; O2SAT 100
[2025-01-10 19:14] VITALS: BP 125/85; PULSE 73; O2SAT 100
== END 2025-01-10 18:55 | disposition home or self-care (01) ==
PROVIDERS: Emergency Provider Emergency Medicine; PCP Family Medicine
DX: O26.891 Other specified pregnancy related conditions, first trimester (principal); Z3A.08 8 weeks gestation of pregnancy; F17.290 Nicotine dependence, other tobacco product, uncomplicated
CPT/HCPCS: 36415; 80053; 81001; 84702; 85025; 96361; 96374; 99284; J2405; J7030